=== PATIENT | male | born 1955 | race African-American/Black ===

== ENCOUNTER 2018-12-16 21:38 | Emergency (ER) | payer OTHER, MEDICAID ==
[~2018-12-16] VITALS: Ht 177.8 cm; Wt 98.4 kg
[~2018-12-16 21:38] MED LIST: AMOX-580 PO; ASPI-1265 PO; ATOR10TA87 PO; BENA40TA73 PO; DIAZ10TA PO; HYDR-569 PO; HYDR12.522 PO; IBUP-1984 PO; LISI40TA4 PO; METF500T PO; NOR5T PO; VENL-191 PO
[2018-12-16 21:54] VITALS: BP 161/83
[2018-12-16] MEDS ORDERED: ondansetron 4mg rapidly disintigrating tab PO ONE (22:15)
[2018-12-16] MEDS ORDERED: ONDA4TAB6 PO (22:24)
[2018-12-16] MEDS ORDERED: ORPH100T2 PO (22:24)
[2018-12-16] MEDS ORDERED: HYDR-4353 PO (22:24)
== END 2018-12-16 22:34 | disposition home or self-care (01) ==
LOC: ER 21:39
DX: S16.1XXA Strain of muscle, fascia and tendon at neck level, initial encounter (principal); S29.012A Strain of muscle and tendon of back wall of thorax, initial encounter; I10 Essential (primary) hypertension; E11.9 Type 2 diabetes mellitus without complications; M19.90 Unspecified osteoarthritis, unspecified site; G89.29 Other chronic pain; Z98.890 Other specified postprocedural states; Z79.82 Long term (current) use of aspirin; Z79.899 Other long term (current) drug therapy; V49.88XA Car occupant (driver) (passenger) injured in other specified transport accidents, initial encounter; Y93.89 Activity, other specified; Y92.413 State road as the place of occurrence of the external cause; Y99.9 Unspecified external cause status
CPT/HCPCS: 99283

== ENCOUNTER 2018-12-22 17:30 | Emergency (ER) | payer OTHER, MEDICAID ==
[~2018-12-22] VITALS: Ht 180.3 cm; Wt 100.0 kg
[~2018-12-22 17:30] MED LIST changes: +HYDR-4353 PO; +ONDA4TAB6 PO; +ORPH100T2 PO
[2018-12-22] MEDS ORDERED: ketorolac tromethamine 15mg/ml inj. IM ONE (19:05)
[2018-12-22 20:08] VITALS: BP 148/90
== END 2018-12-22 20:09 | disposition home or self-care (01) ==
LOC: ER 17:31
DX: M54.2 Cervicalgia (principal); R51 Headache; G89.29 Other chronic pain; H53.2 Diplopia; I10 Essential (primary) hypertension; E11.9 Type 2 diabetes mellitus without complications; M19.90 Unspecified osteoarthritis, unspecified site; Z98.890 Other specified postprocedural states; Z79.82 Long term (current) use of aspirin; Z79.84 Long term (current) use of oral hypoglycemic drugs; Z79.899 Other long term (current) drug therapy; V49.69XA Unspecified car occupant injured in collision with other motor vehicles in traffic accident, initial encounter; Y93.89 Activity, other specified; Y92.488 Other paved roadways as the place of occurrence of the external cause; Y99.8 Other external cause status
CPT/HCPCS: 72040; 96372; 99283; J1885

== ENCOUNTER 2019-06-03 18:37 | Emergency (ER) | payer MEDICAID ==
[~2019-06-03] VITALS: Ht 180.3 cm; Wt 104.5 kg
[~2019-06-03 18:37] MED LIST changes: +CYCL-1 PO; -HYDR-4353 PO
[2019-06-03 18:41] VITALS: BP 193/65
[2019-06-03] MEDS ORDERED: ketorolac trometh inj. 60 MG/2 ML VIAL IM ONE (20:15)
== END 2019-06-03 20:35 | disposition home or self-care (01) ==
LOC: ER 18:38
DX: G89.29 Other chronic pain (principal); M54.5 Low back pain; M54.2 Cervicalgia; I10 Essential (primary) hypertension; E11.9 Type 2 diabetes mellitus without complications; M19.90 Unspecified osteoarthritis, unspecified site; F10.99 Alcohol use, unspecified with unspecified alcohol-induced disorder; Z98.890 Other specified postprocedural states; Z79.82 Long term (current) use of aspirin; Z79.84 Long term (current) use of oral hypoglycemic drugs; Z79.899 Other long term (current) drug therapy; Y90.9 Presence of alcohol in blood, level not specified
CPT/HCPCS: 96372; 99283; J1885

== ENCOUNTER 2019-07-13 19:19 | Emergency (ER) | payer MEDICAID ==
[~2019-07-13] VITALS: Ht 180.3 cm; Wt 106.0 kg
[2019-07-13 19:27] VITALS: BP 169/83
[2019-07-13] MEDS ORDERED: IBUP-1984 PO (20:23)
[2019-07-13] MEDS ORDERED: CYCL-1 PO (20:23)
[2019-07-13] MEDS ORDERED: ketorolac tromethamine 15mg/ml inj. IM ONE (20:25)
== END 2019-07-13 21:14 | disposition home or self-care (01) ==
LOC: ER 19:19
DX: S16.1XXA Strain of muscle, fascia and tendon at neck level, initial encounter (principal); I10 Essential (primary) hypertension; E11.9 Type 2 diabetes mellitus without complications; M19.90 Unspecified osteoarthritis, unspecified site; G89.29 Other chronic pain; F10.99 Alcohol use, unspecified with unspecified alcohol-induced disorder; Z98.890 Other specified postprocedural states; Z79.82 Long term (current) use of aspirin; Z79.899 Other long term (current) drug therapy; Y90.9 Presence of alcohol in blood, level not specified; V89.2XXA Person injured in unspecified motor-vehicle accident, traffic, initial encounter; Y93.89 Activity, other specified; Y92.488 Other paved roadways as the place of occurrence of the external cause; Y99.8 Other external cause status
CPT/HCPCS: 96372; 99283; J1885

== ENCOUNTER 2020-06-22 07:11 | Day surgery (SDC) | payer MEDICARE, MEDICAID ==
[~2020-06-22] VITALS: Ht 177.8 cm; Wt 106.8 kg
[2020-06-22 07:21] VITALS: BP 151/88
[2020-06-22] MEDS ORDERED: LABE100T5 PO (07:29)
[2020-06-22] MEDS ORDERED: MIDAZolam 5mg/5ml vial ONE (07:35)
[2020-06-22] MEDS ORDERED: LIDOcaine Viscous 15ml cup ONE (07:35)
[2020-06-22] MEDS ORDERED: fentaNYL/PF 50MCG/1 ML 2ML syringe ONE (07:35)
[2020-06-22] MEDS ORDERED: CLON0.1T PO (07:36)
[2020-06-22] MEDS ORDERED: HYDR50TA65 PO (07:37)
[2020-06-22] MEDS ORDERED: FAMO40TA73 PO (07:37)
[2020-06-22] MEDS ORDERED: NIFE90TA2 PO (07:38)
[2020-06-22] MEDS ORDERED: ACET-812 PO (07:42)
[2020-06-22] MEDS ORDERED: ATOR10TA PO (07:43)
[2020-06-22] MEDS ORDERED: AZIL1TAB2 PO (07:44)
[2020-06-22] MEDS ORDERED: HYDR-4353 PO (07:45)
[2020-06-22 09:50] VITALS: BP 135/70
[2020-06-22 10:00] VITALS: BP 116/72
[2020-06-22 10:10] VITALS: BP 115/58
[2020-06-22 10:20] VITALS: BP 118/74
== END 2020-06-22 10:29 | disposition home or self-care (01) ==
LOC: GI LAB 07:11
PROVIDERS: ATTEND Internal Medicine Gastroenterology
DX: R93.3 Abnormal findings on diagnostic imaging of other parts of digestive tract (principal); K44.9 Diaphragmatic hernia without obstruction or gangrene; K29.70 Gastritis, unspecified, without bleeding; G47.30 Sleep apnea, unspecified; I10 Essential (primary) hypertension; E11.9 Type 2 diabetes mellitus without complications; Z79.84 Long term (current) use of oral hypoglycemic drugs; Z79.899 Other long term (current) drug therapy
CPT/HCPCS: 43239; 45378; 99153; G0500; J2250; J3010; J7040; 88305; 99152; A4620

== ENCOUNTER 2022-01-24 10:48 | Day surgery (SDC) | payer MEDICARE, MEDICAID ==
[2022-01-19 13:00] LABS: BASOPHILS % (AUTO) 0.8 % (0-1); EOSINOPHILS % (AUTO) 0.9 % (0-6); HEMATOCRIT 39.9 % (42.0-52.0); HEMOGLOBIN 13.3 g/dl (14.0-17.9); LYMPHOCYTES # (AUTO) 1.5 X10'3 (1.1-4.8); LYMPHOCYTES % (AUTO) 33.9 % (21-51); MEAN CORPUSCULAR HEMOGLOBIN 29.3 PG (27.0-31.0); MEAN CORPUSCULAR HGB CONC 33.3 g/dL (33.0-36.5); MEAN CORPUSCULAR VOLUME 88.2 FL (78-98); MEAN PLATELET VOLUME 8.7 FL (7.4-10.4); MONOCYTES # (AUTO) 0.4 X10'3 (0-0.9); MONOCYTES % (AUTO) 8.2 % (2-12); NEUTROPHILS # (AUTO) 2.4 X10'3 (1.8-7.7); NEUTROPHILS % (AUTO) 56.2 % (42-75); PLATELET COUNT 220 X10'3 (140-440); RED BLOOD COUNT 4.53 X10'6 (4.70-6.10); RED CELL DISTRIBUTION WIDTH 13.9 % (11.5-14.5); WHITE BLOOD COUNT 4.3 X10'3 (4.5-11.0)
[2022-01-19 13:04] LABS: APTT 26 SECONDS (22-32)
[2022-01-19 13:06] LABS: ALBUMIN 4.1 G/DL (3.4-5.0); ANION GAP 3 (8-16); BLOOD UREA NITROGEN 21 MG/DL (7-18); BUN/CREATININE RATIO 12.8 (5.4-32.0); CALCIUM 9.3 MG/DL (8.5-10.1); CHLORIDE 109 MMOL/L (99-107); CHOLESTEROL 125 MG/DL (0-200); CREATININE 1.64 MG/DL (0.60-1.10); GLUCOSE 138 MG/DL (70-104); HDL CHOLESTEROL 42 MG/DL (35-60); LDL CHOLESTEROL 63 MG/DL (50-100); POTASSIUM 3.5 MMOL/L (3.5-5.1); SODIUM 140 MMOL/L (135-145); TOTAL CARBON DIOXIDE 28.1 MMOL/L (24-32); TRIGLYCERIDES 67 MG/DL (20-135); eGFR 51 ML/MIN
[~2022-01-24] VITALS: Ht 177.8 cm; Wt 96.3 kg
[2022-01-24] VITALS (12 sets, daily range): BP systolic 109–145; BP diastolic 68–88
[~2022-01-24 10:48] MED LIST changes: +ACET-812 PO; -AMOX-580 PO; +ATOR10TA PO; -ATOR10TA87 PO; +AZIL1TAB2 PO; -BENA40TA73 PO; +CLON0.1T PO; -CYCL-1 PO; -DIAZ10TA PO; +FAMO40TA73 PO; +HYDR-4353 PO; -HYDR-569 PO; -HYDR12.522 PO; +HYDR50TA65 PO; -IBUP-1984 PO; +LABE100T5 PO; -LISI40TA4 PO; +NIFE90TA2 PO; -NOR5T PO; -ONDA4TAB6 PO; -ORPH100T2 PO; -VENL-191 PO
[2022-01-24] MEDS ORDERED: diphenhydrAMINE 25mg capsule PO PRN (11:10)
[2022-01-24] MEDS ORDERED: LORazepam 0.5 MG tablet PO PRN (11:10)
[2022-01-24] MEDS ORDERED: normal saline 1,000 ML IV SCH (11:10)
[2022-01-24] MEDS ORDERED: OMEP20CA16 PO (11:46)
[2022-01-24] MEDS ORDERED: BUSP15TA7 PO (11:46)
[2022-01-24] MEDS ORDERED: ATOR20TA66 PO (11:46)
[2022-01-24] MEDS ORDERED: nitroGLYCERIN-Tridil 50MG/D5W 250 ML IV ONE (11:48)
[2022-01-24] MEDS ORDERED: verapamil 2.5 mg/ml inj IV ONE (11:48)
[2022-01-24] MEDS ORDERED: heparin 1,000unit/ml 10ml vial 10 ML ONE (11:48)
[2022-01-24] MEDS ORDERED: midazolam 1 mg/ML 2ml injection ONE (11:48)
[2022-01-24] MEDS ORDERED: fentaNYL/PF 50MCG/1 ML 2ML syringe ONE (11:48)
[2022-01-24] MEDS ORDERED: LIDOcaine 1% 30ml preserv. free vial ONE (11:49)
[2022-01-24] MEDS ORDERED: iohexol 350MG/ML 100ml bottle IV ONE (11:49)
== END 2022-01-24 16:30 | disposition home or self-care (01) ==
LOC: SSTAY O 10:48
PROVIDERS: ATTEND Internal Medicine Interventional Cardiology
DX: R07.2 Precordial pain (principal); I25.118 Atherosclerotic heart disease of native coronary artery with other forms of angina pectoris; G47.33 Obstructive sleep apnea (adult) (pediatric); I10 Essential (primary) hypertension; E11.65 Type 2 diabetes mellitus with hyperglycemia; E78.49 Other hyperlipidemia; Z88.8 Allergy status to other drugs, medicaments and biological substances; Z79.82 Long term (current) use of aspirin; Z79.899 Other long term (current) drug therapy; Z79.01 Long term (current) use of anticoagulants
CPT/HCPCS: 36415; 80048; 80061; 85025; 85610; 85730; 93005; 93458; 99152; C1769; C1894; J1644; J2250; J3010; J3490; J7030; Q0163; Q9967; A4620; A6258; A6402

== ENCOUNTER 2022-05-14 11:20 | Emergency (ER) | payer OTHER, MEDICARE, MEDICAID ==
[~2022-05-14] VITALS: Ht 177.8 cm; Wt 100.0 kg
[~2022-05-14 11:20] MED LIST changes: -ACET-812 PO; -ATOR10TA PO; +ATOR20TA66 PO; +BUSP15TA7 PO; -FAMO40TA73 PO; -HYDR50TA65 PO; -LABE100T5 PO; +LABE100T8 PO; -METF500T PO; +OMEP20CA16 PO
[2022-05-14 11:23] VITALS: BP 156/81
[2022-05-14] MEDS ORDERED: cyclobenzaprine 10mg tablet PO ONE (11:55)
[2022-05-14] MEDS ORDERED: ibuprofen tablet 400 MG TABLET PO ONE (11:55)
[2022-05-14] MEDS ORDERED: LIDOcaine 5% patch TP SCH (11:55)
== END 2022-05-14 12:36 | disposition home or self-care (01) ==
LOC: ER 11:20
DX: M54.2 Cervicalgia (principal); R51.9 Headache, unspecified; I10 Essential (primary) hypertension; E11.9 Type 2 diabetes mellitus without complications; M19.90 Unspecified osteoarthritis, unspecified site; G89.29 Other chronic pain; Z72.89 Other problems related to lifestyle; Z98.890 Other specified postprocedural states; Z88.8 Allergy status to other drugs, medicaments and biological substances; Z79.82 Long term (current) use of aspirin; Z79.899 Other long term (current) drug therapy
CPT/HCPCS: 99283

== ENCOUNTER 2022-05-24 08:58 | Emergency (ER) | payer OTHER, MEDICARE, MEDICAID ==
[~2022-05-24] VITALS: Ht 177.8 cm; Wt 99.8 kg
[2022-05-24 09:10] VITALS: BP 156/81
[2022-05-24] MEDS ORDERED: acetaminophen 325mg tablet PO ONE (10:45)
== END 2022-05-24 10:59 | disposition home or self-care (01) ==
LOC: ER 08:58
DX: M54.12 Radiculopathy, cervical region (principal); R51.9 Headache, unspecified; G89.29 Other chronic pain; I10 Essential (primary) hypertension; E11.9 Type 2 diabetes mellitus without complications; M19.90 Unspecified osteoarthritis, unspecified site; Z98.890 Other specified postprocedural states; Z72.89 Other problems related to lifestyle; Z79.82 Long term (current) use of aspirin; Z79.899 Other long term (current) drug therapy
CPT/HCPCS: 99282

== ENCOUNTER 2023-01-29 05:36 | Day surgery (SDC) | payer MEDICARE, MEDICAID ==
[2023-01-24 10:38] LABS: BASOPHILS % (AUTO) 1.1 % (0-1); EOSINOPHILS % (AUTO) 0.8 % (0-6); LYMPHOCYTES # (AUTO) 1.4 X10'3 (1.1-4.8); LYMPHOCYTES % (AUTO) 33.2 % (21-51); MEAN CORPUSCULAR HEMOGLOBIN 30.6 PG (27.0-31.0); MEAN CORPUSCULAR HGB CONC 33.1 g/dL (33.0-36.5); MEAN CORPUSCULAR VOLUME 92.6 FL (78-98); MONOCYTES # (AUTO) 0.4 X10'3 (0-0.9); MONOCYTES % (AUTO) 10.5 % (2-12); NEUTROPHILS # (AUTO) 2.3 X10'3 (1.8-7.7); NEUTROPHILS % (AUTO) 54.4 % (42-75); PRE OP HEMATOCRIT 42.3 % (42.0-52.0); PRE OP PLATELET COUNT 210 X10'3 (140-440); RED BLOOD COUNT 4.57 X10'6 (4.70-6.10); RED CELL DISTRIBUTION WIDTH 14.3 % (11.5-14.5)
[2023-01-24 10:50] LABS: BLOOD UREA NITROGEN 28 MG/DL (7-18); BUN/CREATININE RATIO 13.9 (10.0-20.0); CHLORIDE 106 MMOL/L (99-107); CREATININE 2.02 MG/DL (0.60-1.10); PRE OP ANION GAP 13 (8-16); PRE OP GLUCOSE 151 MG/DL (70-104); PRE OP POTASSIUM 4.3 MMOL/L (3.4-5.1); PRE OP SODIUM 141 MMOL/L (135-145); TOTAL CARBON DIOXIDE 21.8 MMOL/L (24-32)
[2023-01-24 10:51] LABS: ALBUMIN 4.1 G/DL (3.4-5.0); ALBUMIN/GLOBULIN RATIO 1.1 (1.1-1.5); ALKALINE PHOSPHATASE 47 IU/L (46-116); CALCIUM 9.1 MG/DL (8.5-10.1); PRE OP ALT 33 U/L (30-65); PRE OP AST 20 U/L (10-37); PRE OP BILIRUB, TOTAL 0.9 MG/DL (0.0-1.0); TOTAL PROTEIN 7.9 G/DL (6.4-8.2); eGFR 40 ML/MIN
[2023-01-29] VITALS (8 sets, daily range): BP systolic 115–130; BP diastolic 64–81
[~2023-01-29] VITALS: Ht 177.8 cm; Wt 94.5 kg
[~2023-01-29 05:36] MED LIST changes: +APIX5TAB3 PO; -BUSP15TA7 PO; +DOCUMENT DATE & TIME OF BETA-BLOCKER PO ONE; +EMPA10TA PO; -OMEP20CA16 PO; +RYT225T PO; +cefazolin 2gm/D5W 100mL 100 ML IV ONE; +famotidine 20mg tablet PO ONE; +normal saline 1000ml 1,000 ML IV SCH; +ringers solution, lacted 1,000 ML IV SCH
[2023-01-29] MEDS ORDERED: BUPIVAcaine/PF 2.5 mg/ml (0.25%) 30ml vial ONE (06:37)
[2023-01-29] MEDS ORDERED: LIDOcaine 2% (20mg/ml) 5ml vial ONE (08:05)
[2023-01-29] MEDS ORDERED: sevoflurane 250ml liquid IH ONE (08:05)
[2023-01-29] MEDS ORDERED: fentaNYL/PF 50MCG/1 ML 2ML syringe ONE (08:16)
[2023-01-29] MEDS ORDERED: MIDAZolam 1 MG/ML 5ML VIAL ONE (08:17)
[2023-01-29] MEDS ORDERED: ROPIVAcaine 0.5% (5mg/ml) 30ml vial ONE (08:52)
[2023-01-29] MEDS ORDERED: dexamethasone sod phosphate 4mg/ml inj. ONE (08:52)
[2023-01-29] MEDS ORDERED: propofol inj 20 ML IV ONE (08:53)
[2023-01-29] MEDS ORDERED: ondansetron/PF 4mg/2ml inj IV PRN (09:25)
[2023-01-29] MEDS ORDERED: meperidine/PF 25mg/ml syringe IV PRN ×3 (09:25)
[2023-01-29] MEDS ORDERED: ROPIVAcaine 0.2% (10 MG/5 ML) BOLUS INJECTION INTERSCALE PRN (09:25)
[2023-01-29] MEDS ORDERED: ROPIVAcaine 0.2%/PF PUMP/bolus 545 ML INTERSCALE SCH (09:25)
[2023-01-29] MEDS ORDERED: ringers solution, lacted 1,000 ML IV SCH (09:25)
[2023-01-29] MEDS ORDERED: proCHLORperazine 10 MG/2 ml inj IV PRN (09:25)
[2023-01-29] MEDS ORDERED: morphine 2 MG/ML inj. syringe IV PRN (09:25)
[2023-01-29] MEDS ORDERED: morphine 4 MG/ML inj SYRINge IV PRN (09:25)
[2023-01-29] MEDS ORDERED: BUPIVAcaine/PF 2.5 mg/ml (0.25%) 30ml vial IJ ONE (09:37)
[2023-01-29] MEDS ORDERED: ondansetron/PF 4mg/2ml inj ONE (10:36)
[2023-01-29] MEDS ORDERED: HYDROcodone/acetaminophen 10/325mg tab PO PRN (10:40)
--- NOTE | 2023-01-29 10:47 | NUR ---
Received from OR via [facility] IN STABLE CONDITION , accompanied by Anesthesiologist and AUTO BUMPER MECHANIC report given by AUTO BUMPER MECHANIC AND Anesthesiolgist. Addendum: 01/29/23 at 1111 by Leigha Rasmussen RN Amended: Links added.
--- NOTE | 2023-01-29 11:57 | NUR ---
ALL DISCHARGE CRITERIA HAS BEEN MET. VSS, PAIN AT A TOLERABLE LEVEL, VOIDING AND ABLE TO SAFELY AMBULATE AND TRANSFER SELF. IV TAKEN OUT WITHOUT ANY COMPLICATIONS. ALL DISCHARGE INSTRUCTIONS COVERED WITH PATIENT AND ALL QUESTIONS ANSWERED. PATIENT TAKEN OUT VIA WHEELCHAIR WITH ALL BELONGINGS TO PERSONAL VEHICLE WHERE FAMILY/FRIEND DROVE PATIENT HOME. Addendum: 01/29/23 at 1218 by Leigha Rasmussen RN Amended: Links added.
== END 2023-01-29 11:57 | disposition home or self-care (01) ==
LOC: PAS 05:36
PROVIDERS: ATTEND Orthopaedic Surgery
DX: M75.122 Complete rotator cuff tear or rupture of left shoulder, not specified as traumatic (principal); M75.22 Bicipital tendinitis, left shoulder; M19.012 Primary osteoarthritis, left shoulder; M75.52 Bursitis of left shoulder; I48.91 Unspecified atrial fibrillation; I10 Essential (primary) hypertension; G47.30 Sleep apnea, unspecified; E11.9 Type 2 diabetes mellitus without complications; F41.9 Anxiety disorder, unspecified; G89.18 Other acute postprocedural pain; F17.290 Nicotine dependence, other tobacco product, uncomplicated; Z79.01 Long term (current) use of anticoagulants; Z79.899 Other long term (current) drug therapy; Z79.82 Long term (current) use of aspirin; Z98.890 Other specified postprocedural states; Z83.3 Family history of diabetes mellitus; Z82.49 Family history of ischemic heart disease and other diseases of the circulatory system
CPT/HCPCS: 23430; 29824; 29826; 29827; 36415; 64416; 71046; 80053; 82948; 85025; C1713; J0690; J1100; J2250; J2405; J2704; J2795; J3010; J3490; J7120; Z7506; Z7508; Z7512; A4565; A4618; A6253; A6449; A7000

== ENCOUNTER 2023-01-30 02:11 | Emergency (ER) | payer MEDICARE, MEDICAID ==
[~2023-01-30] VITALS: Ht 177.8 cm; Wt 94.5 kg
[~2023-01-30 02:11] MED LIST changes: -DOCUMENT DATE & TIME OF BETA-BLOCKER PO ONE; -cefazolin 2gm/D5W 100mL 100 ML IV ONE; -famotidine 20mg tablet PO ONE; -normal saline 1000ml 1,000 ML IV SCH; -ringers solution, lacted 1,000 ML IV SCH
[2023-01-30] MEDS ORDERED: HYDROcodone/acetaminophen 10/325mg tab PO ONE (02:35)
[2023-01-30] MEDS ORDERED: HYDROmorphone 1 mg/ml syringe IM ONE (02:35)
[2023-01-30 04:00] VITALS: BP 115/74
== END 2023-01-30 04:03 | disposition home or self-care (01) ==
LOC: ER 02:12
DX: G89.18 Other acute postprocedural pain (principal); I10 Essential (primary) hypertension; E11.9 Type 2 diabetes mellitus without complications; G89.29 Other chronic pain; M54.9 Dorsalgia, unspecified; Z79.899 Other long term (current) drug therapy; Z79.1 Long term (current) use of non-steroidal anti-inflammatories (NSAID); Z79.2 Long term (current) use of antibiotics
CPT/HCPCS: 96372; 99283; J1170

== ENCOUNTER 2023-06-14 08:51 | Outpatient (CLI) | payer MEDICARE, MEDICAID ==
[2023-06-14] VITALS (14 sets, daily range): BP systolic 76–138; BP diastolic 28–80; PULSE 32–78
== END 2023-06-14 23:59 | disposition home or self-care (01) ==
LOC: CARD DIAG 08:51
PROVIDERS: ATTEND Internal Medicine Interventional Cardiology
DX: R55 Syncope and collapse (principal)
CPT/HCPCS: 93660

== ENCOUNTER 2024-08-09 19:51 | Emergency (ER) | payer MEDICARE, MEDICAID ==
[~2024-08-09] VITALS: Ht 177.8 cm; Wt 100.4 kg
[2024-08-09 22:44] VITALS: BP 144/80; PULSE 88; RESP 18; TEMP 98.1; O2SAT 98
== END 2024-08-09 22:59 | disposition home or self-care (01) ==
LOC: ER 19:51
DX: S09.8XXA Other specified injuries of head, initial encounter (principal); S19.80XA Other specified injuries of unspecified part of neck, initial encounter; M54.2 Cervicalgia; I10 Essential (primary) hypertension; E11.9 Type 2 diabetes mellitus without complications; M19.90 Unspecified osteoarthritis, unspecified site; M54.9 Dorsalgia, unspecified; G89.29 Other chronic pain; Z98.890 Other specified postprocedural states; Z72.89 Other problems related to lifestyle; Z79.01 Long term (current) use of anticoagulants; Z79.82 Long term (current) use of aspirin; Z79.899 Other long term (current) drug therapy; V89.2XXA Person injured in unspecified motor-vehicle accident, traffic, initial encounter; Y93.89 Activity, other specified; Y92.89 Other specified places as the place of occurrence of the external cause; Y99.8 Other external cause status
CPT/HCPCS: 70450; 72125; 99284; L0172